=== PATIENT | female | born 1980 | race Caucasian/White ===

== ENCOUNTER 2016-12-15 11:00 | Emergency (ER) | payer BC, OTHER ==
[2016-12-15 11:12] VITALS: BP 149/73
[2016-12-15] MEDS ORDERED: Ondansetron ODT TAB* 4 MG PO ONE (11:33)
--- NOTE | 2016-12-15 16:48 | UC ---
I, Jack,Joanne, scribed for Evelin Selby MD on 12/15/16 at 1130 . Abdominal Pain Female HPI - HPI Summary HPI Summary: This 36 y/o female presents to [facility] for intermittent diffuse abd cramping n/v/d since yesterday. "Explosive" diarrhea and vomiting started yesterday morning without any blood noted. Pt is having trouble keeping fluid down. No fever. HR of 120 is noted at time of triage. PMHx includes cholecystectomy in March 2015. 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 Plan of care involving Imodium, zofran, and oral fluid resuscitation is discussed with pt, and she is agreeable. Questions are answered. - History of Current Complaint Chief Complaint: UCGI Stated Complaint: VOMITING Time Seen by Provider: 12/15/16 11:17 Hx Obtained From: Patient Hx Last Menstrual Period: 12/06/16 ?: No Onset/Duration: Sudden Onset Timing: Constant Severity Initially: Moderate Severity Currently: Moderate Pain Intensity: 0 Location: Diffuse Radiates: No Character: Cramping Aggravating Factor(s): Food Alleviating Factor(s): Nothing Associated Signs and Symptoms: Positive: Nausea, Vomiting, Diarrhea. Negative: Fever, Blood in Stool Allergies/Adverse Reactions: Allergies Allergy/AdvReac Type Severity Reaction Status Date / Time Albuterol Allergy Intermediate Difficulty Verified 03/28/15 10:59 Breathing Erythromycin Allergy Intermediate GI Upset Verified 03/28/15 10:59 Penicillin V Allergy Intermediate Hives Verified 03/28/15 10:59 [From Penicillin VK Potassium] Sulfamethoxazole Allergy Intermediate Hives Verified 03/28/15 10:59 w/Trimethoprim [From Septra] Levofloxacin [From Levaquin] Allergy Unknown Unknown Verified 03/28/15 10:59 Reaction Details Tetracycline Allergy Unknown Unknown Verified 03/28/15 10:59 Reaction Details Home Medications: Home Medications Sertraline HCl [Zoloft] 50 mg PO 12/15/16 [History] PMH/Surg Hx/FS Hx/Imm Hx Previously Healthy: Yes GI/ History Of: Denies: Ulcer Psychological History Of: Reports: Anxiety, Depression - Surgical History Surgical History: Yes Surgery Procedure, Year, and Place: 04/06 colecystectomy. Tonsillectomy-1984- WOKE UP WITH A SWOLLEN TONGUE- STATES SURGERY TOOK LONGER THAN ANTICIPATED. 1993-EARS PINNED- GENERAL ANESTHESIA - Family History Known Family History: Negative: Other - malignant hyperthermia or adverse anesthesia reaction - Social History Lives: With Family Alcohol Use: Occasionally Substance Use Type: None Substance Use Comment - Amount & Last Used: HX OF MARIJUANA USE BUT NO RECENTLY Smoking Status (MU): Former Smoker Type: Cigarettes Amount Used/How Often: UP TO 2 PPD X 12 YEARS Have You Smoked in the Last Year: No When Did the Patient Quit Smoking/Using Tobacco: 2005 Review of Systems Constitutional: Negative Skin: Negative Eyes: Negative ENT: Negative Respiratory: Negative Cardiovascular: Negative Gastrointestinal: Abdominal Pain - intermittent, cramping, Vomiting, Diarrhea Genitourinary: Negative Motor: Negative Neurovascular: Negative Musculoskeletal: Negative Neurological: Negative Psychological: Negative All Other Systems Reviewed And Are Negative: Yes Physical Exam Triage Information Reviewed: Yes Appearance: Well-Appearing, No Pain Distress, Obese Vital Signs: Initial Vital Signs Temp 97.8 F 12/15/16 11:07 Pulse 120 12/15/16 11:07 Resp 18 12/15/16 11:07 BP 149/73 12/15/16 11:07 Pulse Ox 97 12/15/16 11:07 Vital Signs Reviewed: Yes Eyes: Positive: Conjunctiva Clear ENT: Positive: Normal ENT inspection. Negative: Muffled/hoarse voice Neck: Positive: Supple, Nontender Respiratory: Positive: Lungs clear, Normal breath sounds, No respiratory distress Cardiovascular: Positive: RRR, No Murmur, Pulses Normal, Brisk Capillary Refill Musculoskeletal: Positive: Strength Intact, ROM Intact Neurological: Positive: Alert, Muscle Tone Normal Psychological Exam: Normal Skin Exam: Normal Abd Pain Female Course/Dx - Differential Dx/Diagnosis Differential Diagnosis: Bowel Obstruction, Diverticulitis, Irritable Bowel Syndrome Provider Diagnoses: Gastroenteritis Discharge - Discharge Plan Condition: Stable Disposition: HOME Prescriptions: Ondansetron ODT TAB* [Zofran Odt TAB*] 4 mg PO Q8H PRN #10 tab.odt PRN Reason: Nausea Patient Education Materials: Loperamide (By mouth), Ondansetron (By mouth), Gastroenteritis (ED) Referrals: Jairo Morales MD [Primary Care Provider] - 2 Days Additional Instructions: Dr. Selby recommends that you may also take immodium for the diarrhea, as directed, as long as you do not have a fever. If the diarrhea continues for than 2 days, you should return for a recheck and we will send a stool sample for testing. The documentation as recorded by the Jack jon Soohyun accurately reflects the service I personally performed and the decisions made by me, Evelin Selby MD.
== END 2016-12-15 11:50 | disposition home or self-care (01) ==
LOC: UCEAST 11:00
DX: K52.9 Noninfective gastroenteritis and colitis, unspecified (principal); Z88.1 Allergy status to other antibiotic agents; Z88.0 Allergy status to penicillin; Z88.2 Allergy status to sulfonamides; Z87.891 Personal history of nicotine dependence
CPT/HCPCS: 99212; A9270-GY; G0463

== ENCOUNTER 2019-10-04 07:37 | Emergency (ER) | payer BC ==
[2019-10-04 07:56] VITALS: BP 155/80
[2019-10-04] MEDS ORDERED: cefTRIAXone VIAL(*) 1,000 MG VIAL IM ONE (08:13)
[2019-10-04] MEDS: Lidocaine 1% MPF ** 5 ML VIAL INJ ONE ×2 (08:29→08:38)
[2019-10-04] MEDS ORDERED: Lidocaine 1% MPF ** 5 ML VIAL INJ ONE (08:33)
--- NOTE | 2019-10-04 08:33 | UC ---
Skin Complaint HPI - HPI Summary HPI Summary: ONSET YESTERDAY OF REDNESS AND THROBBING TO HER NOSE. STATES SHE HAS HAD A SMALL SCRATCH INSIDE HER RIGHT NOSTRIL FOR A FEW DAYS. NO DRAINAGE. NO FEVER. HAS A PAINFUL SWOLLEN LYMPH NODE IN HER LEFT ANTERIOR NECK. - History of Current Complaint Chief Complaint: UCGeneralIllness Time Seen by Provider: 10/04/19 08:01 Stated Complaint: SINUS ISSUE Hx Obtained From: Patient Hx Last Menstrual Period: now Onset/Duration: Gradual Onset, Lasting Hours, Still Present Timing: Constant Onset Severity: Moderate Current Severity: Moderate Pain Intensity: 6 Pain Scale Used: 0-10 Numeric Location: Discrete - NOSE Character: Pain, Redness Aggravating Factor(s): Touch Alleviating Factor(s): Nothing - Allergy/Home Medications Allergies/Adverse Reactions: Allergies Allergy/AdvReac Type Severity Reaction Status Date / Time albuterol Allergy Difficulty Verified 10/04/19 07:50 Breathing/Wheezing erythromycin base Allergy Hives/Diff. Verified 10/04/19 07:50 Breathing/I tching levofloxacin [From Levaquin] Allergy Unknown Verified 10/04/19 07:51 Reaction Details penicillin V Allergy Difficulty Verified 10/04/19 07:50 Breathing/Wheezing Sulfa (Sulfonamide Allergy Hives Verified 10/04/19 07:51 Antibiotics) Tetracyclines Allergy Hives/Diff. Verified 10/04/19 07:52 Breathing/I tching Home Medications: Home Medications Metoprolol Succinate 25 mg PO DAILY 10/04/19 [History Confirmed 10/04/19] Multivitamin [Multivitamins] 1 cap PO DAILY 10/04/19 [History Confirmed 10/04/19 ] PMH/Surg Hx/FS Hx/Imm Hx Cardiovascular History: Hypertension - Surgical History Surgical History: Yes Surgery Procedure, Year, and Place: 04/06 colecystectomy. Tonsillectomy-1984- WOKE UP WITH A SWOLLEN TONGUE- STATES SURGERY TOOK LONGER THAN ANTICIPATED. 1993-EARS PINNED- GENERAL ANESTHESIA - Family History Known Family History: Negative: Other - malignant hyperthermia or adverse anesthesia reaction - Social History Alcohol Use: Rare Substance Use Type: None Substance Use Comment - Amount & Last Used: HX OF MARIJUANA USE BUT NO RECENTLY Smoking Status (MU): Former Smoker Type: Cigarettes Amount Used/How Often: UP TO 2 PPD X 12 YEARS Have You Smoked in the Last Year: No When Did the Patient Quit Smoking/Using Tobacco: 2005 Review of Systems All Other Systems Reviewed And Are Negative: Yes Constitutional: Positive: Negative Skin: Positive: Other - ERYTHEMA NOSE Respiratory: Positive: Negative Cardiovascular: Positive: Negative Gastrointestinal: Positive: Negative Physical Exam Triage Information Reviewed: Yes Appearance: Well-Appearing, No Pain Distress, Well-Nourished Vital Signs: Initial Vital Signs Temp 98.6 F 10/04/19 07:51 Pulse 100 10/04/19 07:51 Resp 20 10/04/19 07:51 BP 155/80 10/04/19 07:51 Pulse Ox 100 10/04/19 07:51 Vital Signs Reviewed: Yes Eyes: Positive: Conjunctiva Clear ENT: Positive: Hearing grossly normal, Pharynx normal Neck: Positive: Supple, Tenderness @ - LEFT ANTERIOR CERVICAL LAD, Enlarged Nodes @ - LEFT ANTERIOR CERVICAL LAD Respiratory: Positive: No respiratory distress, No accessory muscle use Cardiovascular: Positive: Pulses Normal Abdomen Description: Positive: Soft Musculoskeletal: Positive: No Edema Neurological: Positive: Alert Psychological: Positive: Age Appropriate Behavior Skin: Positive: Other - NOSE ERYTHAMATOUS. SMALL CRACK IN THE MUCOSA RIGHT NARE Course/Dx - Course Course Of Treatment: PRESENTATION CONSISTENT WITH CELLULITIS OF THE NOSE LIKELY STEMMING FROM THE SMALL SCRATCH TO HER RIGHT NASAL MUCOSA. SHE REPORTS MULTIPLE ANTIBIOTIC ALLERGIES BUT STATES SHE HAS TAKEN CEFACLOR IN THE PAST WITH GOOD EFFECT AND IS REQUESTING THIS TODAY. SHE IS UNABLE TO GET TO A PHARMACY UNTIL LATER THIS EVENING SHE IS REQUESTING AND RECEIVED A ROCEPHIN INJECTION HERE IN THE . - Diagnoses Provider Diagnosis: Cellulitis of nose Discharge ED - Sign-Out/Discharge Documenting (check all that apply): Patient Departure All imaging exams completed and their final reports reviewed: No Studies - Discharge Plan Condition: Stable Disposition: HOME Prescriptions: cefaCLOR [Cefaclor] 6.5 ml PO TID #195 ml Mupirocin 2% OINT* [Bactroban 2 % Oint*] 1 applic BOTH NARES BID #1 tube Patient Education Materials: Cellulitis (ED) Referrals: Jairo Morales MD [Primary Care Provider] - If Needed Additional Instructions: YOUR PRESENTATION IS CONSISTENT WITH A CELLULITIS/SKIN INFECTION OF YOUR NOSE. YOU RECEIVED 1 G ROCEPHIN TODAY IN THE URGENT CARE. TAKE YOUR FIRST DOSE OF CECLOR TONIGHT BEFORE BED. YOU SHOULD NOTICE IMPROVEMENT AFTER 24-48 HOURS ON MEDICATION. GO TO THE ER WITHOUT FAIL IF YOU HAVE CONTINUED SPREADING REDNESS OF THE SKIN, FEVER, WORSENING PAIN OR ANY OTHER CONCERNING SYMPTOMS. - Billing Disposition and Condition Condition: STABLE Disposition: Home
== END 2019-10-04 08:40 | disposition home or self-care (01) ==
LOC: UCEAST 07:37
DX: J34.0 Abscess, furuncle and carbuncle of nose (principal); I10 Essential (primary) hypertension; Z88.8 Allergy status to other drugs, medicaments and biological substances; Z88.1 Allergy status to other antibiotic agents; Z88.0 Allergy status to penicillin; Z88.2 Allergy status to sulfonamides; Z79.899 Other long term (current) drug therapy; Z87.891 Personal history of nicotine dependence
CPT/HCPCS: 96372; 99212; G0463; J0696

== ENCOUNTER 2019-10-04 20:34 | Emergency (ER) | payer BC ==
[2019-10-04 21:55] LABS: ABS Eosinophils 0.1 10^3/ul (0-0.6); ABS Lymphocytes 1.4 10^3/ul (1.0-4.8); ABS Monocytes 0.6 10^3/ul (0-0.8); ABS Neutrophils 6.8 10^3/ul (1.5-7.7); Eosinophil % 0.9 %; Hematocrit 42 % (35-47); Lymphocyte % 15.6 %; Mean Corpuscular HGB Conc 34 g/dL (31-36); Mean Corpuscular Hemoglobin 27 pg (27-31); Mean Corpuscular Volume 80 fL (80-97); Mean Platelet Volume 7.8 fL (7.4-10.4); Nucleated Red Blood Cells % 0.1; Platelet Count 266 10^3/uL (150-450); Red Blood Count 5.18 10^6 /uL (3.70-4.87); Red Cell Distribution Width 15 % (10-15); White Blood Count 8.9 10^3/uL (3.5-10.8)
[2019-10-04 22:00] LABS: INR 1.01 (0.82-1.09)
[2019-10-04 22:12] LABS: ALT 16 U/L (7-52); AST 15 U/L (13-39); Albumin 4.5 g/dL (3.2-5.2); Albumin/Globulin Ratio 1.5 (1-3); Alkaline Phosphatase 82 U/L (34-104); Anion Gap 9 mmol/L (2-11); BUN/Creatinine Ratio 12.3 (8-20); Blood Urea Nitrogen 9 mg/dL (6-24); CO2 Carbon Dioxide 24 mmol/L (22-32); Calcium 9.6 mg/dL (8.6-10.3); Chloride 103 mmol/L (101-111); EGFR African American 107.4 (>60); EGFR Non-African American 88.8 (>60); Globulin 3.1 g/dL (2-4); Glucose 95 mg/dL (70-100); Potassium 3.7 mmol/L (3.5-5.0); Sodium 136 mmol/L (135-145); Total Protein 7.6 g/dL (6.4-8.9)
[2019-10-04 22:19] LABS: HCG Pregnancy < 0.60 mIU/mL
--- NOTE | 2019-10-05 00:47 | ED ---
Skin Complaint - HPI Summary HPI Summary: Patient complains of cellulitis of the nose 1 day. Seen at urgent care this morning given a shot of Rocephin and started on cefaclor. Patient states symptoms getting worse over the day, with subjective fever and swelling glands. Denies cough, sore throat, CP, SOB, N/V/V abdominal pain, change in urine, change in BM. Medical history is none. - History of Current Complaint Chief Complaint: EDFever Time Seen by Provider: 10/05/19 00:33 Stated Complaint: CELLULITIS PER PT Hx Obtained From: Patient Hx Last Menstrual Period: now Onset/Duration: Started Hours Ago Skin Exposure Onset/Duration: Hours Ago Timing: Constant Onset Severity: Moderate Current Severity: Moderate Pain Intensity: 6 Pain Scale Used: 0-10 Numeric Skin Location: Discrete, Nose Aggravating Symptom(s): Touch Alleviating Symptom(s): Nothing Associated Signs & Symptoms: Negative - Allergy/Home Medications Allergies/Adverse Reactions: Allergies Allergy/AdvReac Type Severity Reaction Status Date / Time albuterol Allergy Difficulty Verified 10/04/19 20:49 Breathing/Wheezing erythromycin base Allergy Hives/Diff. Verified 10/04/19 20:49 Breathing/I tching levofloxacin [From Levaquin] Allergy Unknown Verified 10/04/19 20:49 Reaction Details penicillin V Allergy Difficulty Verified 10/04/19 20:49 Breathing/Wheezing Sulfa (Sulfonamide Allergy Hives Verified 10/04/19 20:49 Antibiotics) Tetracyclines Allergy Hives/Diff. Verified 10/04/19 20:49 Breathing/I tching PMH/Surg Hx/FS Hx/Imm Hx Endocrine/Hematology History: Denies: Hx Diabetes, Hx Thyroid Disease Cardiovascular History: Reports: Hx Hypertension Denies: Hx Pacemaker/ICD Respiratory History: Reports: Hx Seasonal Allergies, Other Respiratory Problems/ Disorders - SINUS INFECTION- CURRENTLY TAKING ANTIBIOTIC Denies: Hx Asthma, Hx Chronic Obstructive Pulmonary Disease (COPD) GI History: Denies: Hx Ulcer History: Denies: Hx Dialysis Musculoskeletal History: Reports: Hx Back Problems, Hx Fibromyalgia, Other Musculoskeletal History - Chronic Left Shoulder Pain- STATES MUSCLULAR- - DOING EXCERCISES FOR Sensory History: Reports: Hx Contacts or Glasses - GLASSES Denies: Hx Hearing Aid Opthamlomology History: Reports: Hx Contacts or Glasses - GLASSES Neurological History: Reports: Hx Headaches Psychiatric History: Reports: Hx Anxiety, Hx Depression, Hx Panic Disorder - Surgical History Surgery Procedure, Year, and Place: 04/06 colecystectomy. Tonsillectomy-1984- WOKE UP WITH A SWOLLEN TONGUE- STATES SURGERY TOOK LONGER THAN ANTICIPATED. 1993-EARS PINNED- GENERAL ANESTHESIA Hx Anesthesia Reactions: No Infectious Disease History: No Infectious Disease History: Denies: Hx Clostridium Difficile, Hx Hepatitis, Hx Human Immunodeficiency Virus (HIV), Hx of Known/Suspected MRSA, Hx Shingles, Hx Tuberculosis, Hx Known/ Suspected VRE, Hx Known/Suspected VRSA, History Other Infectious Disease, Traveled Outside the [place] in Last 30 Days - Family History Known Family History: Negative: Other - malignant hyperthermia or adverse anesthesia reaction - Social History Alcohol Use: Rare Substance Use Type: Reports: None Substance Use Comment - Amount & Last Used: HX OF MARIJUANA USE BUT NO RECENTLY Smoking Status (MU): Former Smoker Type: Cigarettes Amount Used/How Often: UP TO 2 PPD X 12 YEARS Have You Smoked in the Last Year: No Review of Systems Positive: Fever Eyes: Negative ENT: Negative Cardiovascular: Negative Respiratory: Negative Gastrointestinal: Negative Genitourinary: Negative Musculoskeletal: Negative Skin: Other Neurological: Negative Psychological: Normal All Other Systems Reviewed And Are Negative: Yes Physical Exam - Summary Physical Exam Summary: External surface of nose bilaterally is erythematous and warm. Multiple small whiteheads present. No obvious collection or abscess. Anterior exam of bilateral nares normal. Triage Information Reviewed: Yes Vital Signs On Initial Exam: Initial Vitals Temp Pulse Resp BP Pulse Ox 98.6 F 109 15 152/106 97 10/04/19 20:47 10/04/19 20:47 10/04/19 20:47 10/04/19 20:47 10/04/19 20:47 Vital Signs Reviewed: Yes Appearance: Positive: Well-Appearing Skin: Positive: Warm Head/Face: Positive: Normal Head/Face Inspection Eyes: Positive: Normal ENT: Positive: Normal ENT inspection Neck: Positive: Supple Respiratory/Lung Sounds: Positive: Clear to Auscultation Cardiovascular: Positive: Normal Abdomen Description: Positive: Nontender Musculoskeletal: Positive: Normal Neurological: Positive: Normal Psychiatric: Positive: Normal AVPU Assessment: Alert - [place] Coma Scale Best Eye Response: 4 - Spontaneous Best Motor Response: 6 - Obeys Commands Best Verbal Response: 5 - Oriented Coma Scale Total: 15 Procedures - Sedation Patient Received Moderate/Deep Sedation with Procedure: No Diagnostics - Vital Signs Vital Signs Temp Pulse Resp BP Pulse Ox 10/04/19 22:51 97.8 F 95 16 154/89 98 10/04/19 20:47 98.6 F 109 15 152/106 97 - Laboratory Lab Results: Lab Results 10/04/19 10/04/19 10/04/19 Range/Units 21:46 21:46 21:46 WBC 8.9 (3.5-10.8) 10^3/uL RBC 5.18 H (3.70-4.87) 10^6 /uL Hgb 14.0 (12.0-16.0) g/dL Hct 42 (35-47) % MCV 80 (80-97) fL MCH 27 (27-31) pg MCHC 34 (31-36) g/dL RDW 15 (10-15) % Plt Count 266 (150-450) 10^3/uL MPV 7.8 (7.4-10.4) fL Neut % (Auto) 76.8 % Lymph % (Auto) 15.6 % [place] % (Auto) 6.3 % Eos % (Auto) 0.9 % Baso % (Auto) 0.4 % Absolute Neuts (auto) 6.8 (1.5-7.7) 10^3/ul Absolute Lymphs (auto) 1.4 (1.0-4.8) 10^3/ul Absolute Monos (auto) 0.6 (0-0.8) 10^3/ul Absolute Eos (auto) 0.1 (0-0.6) 10^3/ul Absolute Basos (auto) 0.0 (0-0.2) 10^3/ul Absolute Nucleated RBC 0.0 10^3/ul Nucleated RBC % 0.1 INR (Anticoag Therapy) 1.01 (0.82-1.09) Sodium 136 (135-145) mmol/L Potassium 3.7 (3.5-5.0) mmol/L Chloride 103 (101-111) mmol/L Carbon Dioxide 24 (22-32) mmol/L Anion Gap 9 (2-11) mmol/L BUN 9 (6-24) mg/dL Creatinine 0.73 (0.51-0.95) mg/dL Est GFR ( Amer) 107.4 (>60) Est GFR (Non-Af Amer) 88.8 (>60) BUN/Creatinine Ratio 12.3 (8-20) Glucose 95 (70-100) mg/dL Lactic Acid (0.5-2.0) mmol/L Calcium 9.6 (8.6-10.3) mg/dL Total Bilirubin 0.80 (0.2-1.0) mg/dL AST 15 (13-39) U/L ALT 16 (7-52) U/L Alkaline Phosphatase 82 (34-104) U/L Total Protein 7.6 (6.4-8.9) g/dL Albumin 4.5 (3.2-5.2) g/dL Globulin 3.1 (2-4) g/dL Albumin/Globulin Ratio 1.5 (1-3) Beta HCG, Quant < 0.60 mIU/mL 10/04/19 Range/Units 21:46 WBC (3.5-10.8) 10^3/uL RBC (3.70-4.87) 10^6 /uL Hgb (12.0-16.0) g/dL Hct (35-47) % MCV (80-97) fL MCH (27-31) pg MCHC (31-36) g/dL RDW (10-15) % Plt Count (150-450) 10^3/uL MPV (7.4-10.4) fL Neut % (Auto) % Lymph % (Auto) % [place] % (Auto) % Eos % (Auto) % Baso % (Auto) % Absolute Neuts (auto) (1.5-7.7) 10^3/ul Absolute Lymphs (auto) (1.0-4.8) 10^3/ul Absolute Monos (auto) (0-0.8) 10^3/ul Absolute Eos (auto) (0-0.6) 10^3/ul Absolute Basos (auto) (0-0.2) 10^3/ul Absolute Nucleated RBC 10^3/ul Nucleated RBC % INR (Anticoag Therapy) (0.82-1.09) Sodium (135-145) mmol/L Potassium (3.5-5.0) mmol/L Chloride (101-111) mmol/L Carbon Dioxide (22-32) mmol/L Anion Gap (2-11) mmol/L BUN (6-24) mg/dL Creatinine (0.51-0.95) mg/dL Est GFR ( Amer) (>60) Est GFR (Non-Af Amer) (>60) BUN/Creatinine Ratio (8-20) Glucose (70-100) mg/dL Lactic Acid 0.9 (0.5-2.0) mmol/L Calcium (8.6-10.3) mg/dL Total Bilirubin (0.2-1.0) mg/dL AST (13-39) U/L ALT (7-52) U/L Alkaline Phosphatase (34-104) U/L Total Protein (6.4-8.9) g/dL Albumin (3.2-5.2) g/dL Globulin (2-4) g/dL Albumin/Globulin Ratio (1-3) Beta HCG, Quant mIU/mL Result Diagrams: 10/04/19 21:46 10/04/19 21:46 Lab Statement: Any lab studies that have been ordered have been reviewed, and results considered in the medical decision making process. Course/Dx - Course Course Of Treatment: Patient complains of cellulitis of the nose 1 day. Seen at urgent care this morning given a shot of Rocephin and started on cefaclor. Patient states symptoms getting worse over the day, with subjective fever and swelling glands. Denies cough, sore throat, CP, SOB, N/V/V abdominal pain, change in urine, change in BM. Medical history is none. Vital signs within normal limits. Labs unremarkable. Patient advised to continue taking cefaclorand use warm compresses to help facilitate drainage. - Diagnoses Provider Diagnoses: Cellulitis Discharge ED - Sign-Out/Discharge Documenting (check all that apply): Patient Departure - Discharge Plan Condition: Stable Disposition: HOME Patient Education Materials: Cellulitis (ED) Referrals: Jairo Morales MD [Primary Care Provider] - Additional Instructions: Continue taking cefaclor as directed. Use warm compresses on your nose to help facilitate draining of infection. Alternate ibuprofen 600 mg with Tylenol 650 mg every 3 hours for fever and discomfort. Antibiotics can take up to 48 hours to start being noticeably affected. Symptoms continue to worsen on third day return to the ED, and/or return for any significantly worsening symptoms. - Billing Disposition and Condition Condition: STABLE Disposition: Home
[2019-10-05 01:01] VITALS: BP 139/71
== END 2019-10-05 00:50 | disposition home or self-care (01) ==
LOC: ED 20:34
DX: L03.211 Cellulitis of face (principal); R50.9 Fever, unspecified; Z87.891 Personal history of nicotine dependence; Z88.0 Allergy status to penicillin
CPT/HCPCS: 36415; 80053; 83605; 84702; 85025; 85610; 87040; 99282